=== PATIENT | male | born 1980 | race Caucasian/White ===

== ENCOUNTER 2017-02-17 16:43 | Emergency (ER) | payer MEDICAID | END 2017-02-17 16:58 | disposition home or self-care (01) | LOC: ED 16:43 | DX: S93.401A Sprain of unspecified ligament of right ankle, initial encounter (principal); W22.8XXA Striking against or struck by other objects, initial encounter; Y93.9 Activity, unspecified; Y92.009 Unspecified place in unspecified non-institutional (private) residence as the place of occurrence of the external cause ==

== ENCOUNTER → 2020-03-22 | Outpatient (CLI) | payer SELFPAY ==
[2017-02-17 17:02] VITALS: BP 133/98
== END ==
LOC: LAB 12:56
DX: Z20.2 Contact with and (suspected) exposure to infections with a predominantly sexual mode of transmission (principal); R36.9 Urethral discharge, unspecified